=== PATIENT | female | born 1970 | race Hispanic/Latino ===

== ENCOUNTER 2017-07-11 12:40 | Outpatient (CLI) | payer OTHER ==
--- NOTE | 2017-07-12 13:19 | Mammography Report ---
BILATERAL DIGITAL SCREENING MAMMOGRAM with CAD: 07/11/17 12:40:00 CLINICAL: Baseline screening. FINDINGS: The breasts are heterogeneously dense, which may obscure small masses. Bilateral asymmetries and architectural distortion require additional imaging. No suspicious calcifications. IMPRESSION: Bilateral asymmetries and architectural distortion requiring further workup. BI-RADS CATEGORY: 0 -- Additional Imaging Evaluation Required RECOMMENDATION: Recall for bilateral true lateral and spot magnification views and bilateral breast ultrasound if needed. ACR BI-RADS MAMMOGRAPHIC CODES: 0 = Needs additional imaging evaluation; 1 = Negative; 2 = Benign; 3 = Probably benign; 4 = Suspicious; 5 = Malignant; 6 = Known biopsy-proven malignancy COMMENT: 1. Dense breast tissue, i.e., adenosis, fibrocystic changes, etc., may obscure an underlying neoplasm. 2. Approximately 10% of cancers are not detected with mammography. 3. A negative mammography report should not delay biopsy if a clinically suspicious mass is present. COMMENT: Patient follow-up letters are generated via our [employer] application.
== END 2017-07-11 12:41 | disposition home or self-care (01) ==
LOC: SPVWC 12:40
PROVIDERS: ATTEND Nurse Practitioner Gerontology
DX: Z12.31 Encounter for screening mammogram for malignant neoplasm of breast (principal); N64.89 Other specified disorders of breast
CPT/HCPCS: 77067

== ENCOUNTER 2017-08-24 10:34 | Outpatient (CLI) | payer MEDICAID ==
--- NOTE | 2017-08-24 11:12 | Mammography Report ---
BILATERAL DIGITAL DIAGNOSTIC MAMMOGRAM : 08/24/17 10:34:00 CLINICAL: Recalled for bilateral asymmetries. COMPARISON:07/11/17 screening FINDINGS: Bilateral additional mammographic views were performed and are negative.Satisfactory effacement of bilateral asymmetries and negative lateral views. IMPRESSION: Negative Mammogram. BI-RADS CATEGORY: 1 -- Negative RECOMMENDATION: Routine mammographic screening in one year. ACR BI-RADS MAMMOGRAPHIC CODES: 0 = Needs additional imaging evaluation; 1 = Negative; 2 = Benign; 3 = Probably benign; 4 = Suspicious; 5 = Malignant; 6 = Known biopsy-proven malignancy COMMENT: 1. Dense breast tissue, i.e., adenosis, fibrocystic changes, etc., may obscure an underlying neoplasm. 2. Approximately 10% of cancers are not detected with mammography. 3. A negative mammography report should not delay biopsy if a clinically suspicious mass is present. COMMENT: Patient follow-up letters are generated via our [employer] application.
== END 2017-08-24 10:35 | disposition home or self-care (01) ==
LOC: SPVWC 10:34
PROVIDERS: ATTEND Nurse Practitioner Gerontology
DX: N64.89 Other specified disorders of breast (principal); R92.2 Inconclusive mammogram
CPT/HCPCS: 77066

== ENCOUNTER 2018-10-03 13:11 | Outpatient (CLI) | payer MEDICAID ==
--- NOTE | 2018-10-03 15:35 | Mammography Report ---
DIGITAL SCREENING MAMMOGRAM WITH CAD, 10/03/2018 INDICATION: Routine screening mammography. TECHNIQUE: Digital bilateral 2D mammography was obtained in the craniocaudal and mediolateral obliq ue projections. This examination was interpreted with the benefit of Computer-Aided Detection analysi s. COMPARISON: 07/11/2017 FINDINGS: Breast Density: The breasts are heterogeneously dense, which may obscure small masses. There is no evidence of dominant mass, suspicious calcifications or architectural distortion in eithe r breast. IMPRESSION: BI-RADS Category 1: Negative. No mammographic evidence of malignancy. Recommend routine screening m ammography in one year. A "normal" or negative report should not discourage follow up or biopsy of a clinically significant f inding. A written summary of these findings will be mailed to the patient. The patient will be entered into a mammography reporting system which will generate a reminder letter for the patient's next appointmen t at the appropriate interval. The [employer] recommends yearly mammograms starting at age 40 and continuing as l el as a woman is in good health. Breast MRI is recommended for women with an approximate 20-25% or greater lifetime risk of breast cancer, including women with a strong family history of breast or ova tia cancer or who have been treated for Hodgkin's disease. Signer Name: Jarocho Gan MD Signed: 10/03/2018 3:31 PM Workstation Name: [id number]
--- NOTE | 2018-10-03 15:45 | Ultrasound Report ---
ULTRASOUND PELVIC COMPLETE ULTRASOUND TRANSVAGINAL HISTORY: Excessive menstrual bleeding, abnormal uterine bleeding. TECHNIQUE: Transabdominal and transvaginal ultrasound with color and spectral Doppler imaging. COMPARISON: None at this facility. FINDINGS: The uterus is anteverted. The uterus is mildly enlarged measuring 10.6 x 4.6 x 6.5 cm. No obvious juice rine fibroids are identified. The cervix is unremarkable. The endometrial stripe is abnormally thickened up to 2 cm on transvaginal imaging. There is suggestio n of 2 small endometrial polyps in the right side of the fundus and left side of the body of the uter us measuring up to 2 cm on ultrasound. I am not entirely convinced these represent endometrial polyps . This could represent a heterogeneous thickened endometrium as well. No endometrial fluid. The right ovary measures 1.6 x 1.3 x 1.0 cm. The left ovary measures 2.6 x 1.3 x 2.1 cm. No ovarian c yst or mass. Mild bilateral hydrosalpinx is also identified. No pelvic fluid collection. IMPRESSION: Thickened endometrium measuring up to 2 cm. This could represent endometrial hyperplasia. There is qu estion of 2 endometrial polyps as described above. Normal ovaries. Bilateral hydrosalpinx. Signer Name: Rene Connors Jr, MD Signed: 10/03/2018 3:40 PM Workstation Name: [id number]
== END 2018-10-03 13:12 | disposition home or self-care (01) ==
LOC: SPVWC 13:11
PROVIDERS: ATTEND Obstetrics & Gynecology
DX: Z12.31 Encounter for screening mammogram for malignant neoplasm of breast (principal); N70.11 Chronic salpingitis; I11.0 Hypertensive heart disease with heart failure; I50.21 Acute systolic (congestive) heart failure; J45.909 Unspecified asthma, uncomplicated; K21.9 Gastro-esophageal reflux disease without esophagitis
CPT/HCPCS: 76830; 76856; 77067

== ENCOUNTER 2019-05-17 12:55 | Outpatient (CLI) | payer MEDICAID ==
--- NOTE | 2019-05-17 14:12 | Cat Scan Report ---
CT ABDOMEN AND PELVIS WITHOUT CONTRAST HISTORY: K43.2Incisional hernia without obstruction or gangrene. COMPARISON: None. TECHNIQUE: Helical CT images of the abdomen and pelvis were obtained without administration of intrav enous contrast. Sagittal and coronal reformatted images were reviewed. All CT scans at this location are performed using CT dose reduction for ALARA by means of automated exposure control. FINDINGS: Abdomen/pelvis: A moderate sized supraumbilical hernia containing fat is identified. The hernia is a pproximately 4 cm superior to the umbilicus. The hernia neck measures 2.9 cm. The hernia sac measures 9.1 x 7.1 x 5.1 cm. No bowel loops are incorporated. No inflammation. The liver, biliary system, pancreas, spleen and adrenal glands are unremarkable. There are a few scattered bilateral renal stones with the largest measuring 9 mm at the superior pole of the left kidney. The aorta is normal caliber. There is mild sigmoid diverticulosis but no evidence for diverticulitis. No bowel obstruction or bowel wall thickening. Right hemicolectomy changes are suggested, correlate with history. Uterus, adnexa and bladder are unremarkable. Lungs/bones: Clear lung bases. The bony structures are intact with moderate degenerative changes at L5-S1. IMPRESSION: Supraumbilical hernia containing fat as outlined above. Bilateral nephrolithiasis. No hydronephrosis. Diverticulosis of the distal colon. Previous right hemicolectomy changes are suspected. Signer Name: Rene Connors Jr, MD Signed: 05/17/2019 2:08 PM Workstation Name: [id number]
== END 2019-05-17 12:56 | disposition home or self-care (01) ==
LOC: CT 12:55
PROVIDERS: ATTEND Surgery
DX: K42.9 Umbilical hernia without obstruction or gangrene (principal); N20.0 Calculus of kidney; K57.30 Diverticulosis of large intestine without perforation or abscess without bleeding
CPT/HCPCS: 74176

== ENCOUNTER 2019-07-18 10:02 | Day surgery (SDC) | payer MEDICAID ==
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
[2019-07-18 06:55] LABS: Bacteria,Urine 1+ /HPF (Negative); Bilirubin,Urine NEG (Negative); Blood,Urine NEG (Negative); Color,Urine Amber (Yellow); Mucus,Urine FEW /HPF; Protein,Urine <15 mg/dL mg/dL (Negative)
[2019-07-18 06:55] LABS: Basophils # (Auto) 0.1 K/mm3 (0.0-0.1); Basophils % (Auto) 0.7 % (0.0-1.8); Eosinophils # (Auto) 0.5 K/mm3 (0.0-0.4); Eosinophils % (Auto) 6.5 % (0.0-4.3); Hematocrit 37.7 % (30.3-42.9); Hemoglobin 13.3 gm/dl (10.1-14.3); Lymphocytes # (Auto) 2.2 K/mm3 (1.2-5.4); Lymphocytes % (Auto) 29.7 % (13.4-35.0); Mean Corpuscular HGB Conc 35 % (30-34); Mean Corpuscular Volume 88 fl (79-97); Monocytes # (Auto) 0.5 K/mm3 (0.0-0.8); Monocytes % (Auto) 7.4 % (0.0-7.3); Platelet Count 304 K/mm3 (140-440); Red Blood Count 4.27 M/mm3 (3.65-5.03); Red Cell Distribution Width 15.2 % (13.2-15.2)
--- NOTE | 2019-07-18 07:05 | Anesthesia Day of Surgery ---
Anesthesia Day of Surgery - Day of Surgery Patient Examined: Yes Patient H&P Reviewed: Yes Patient is NPO: Yes
--- NOTE | 2019-07-18 08:21 | Cat Scan Report ---
CT abdomen pelvis wo con INDICATION / CLINICAL INFORMATION: MAIN: LEFT FLANK PAIN X 1 WEEK PRE OP. TECHNIQUE: All CT scans at this location are performed using CT dose reduction for ALARA by means of automated e xposure control. COMPARISON: 05/17/2019 FINDINGS: No free fluid is seen in the abdomen. Nonobstructing left renal stones are again seen unchanged. Ther e are tiny stones present on the right. A ventral hernia containing fat is again seen. The liver, spl een, pancreas, adrenal glands and great vessels are normal. No enlarged mesenteric or retroperitoneal lymph nodes are identified. In the pelvis, no free fluid is seen. Changes of diverticulosis are present. No enlarged lymph nodes are identified. The bladder is minimally distended. There is been previous right hemicolectomy. No si gnificant skeletal abnormality is identified. IMPRESSION: 1. Bilateral nonobstructing renal stones larger on the left than the right 2. Ventral hernia containing fat 3. Diverticulosis with previous right hemicolectomy 4. No acute findings or interval change from 05/17/2019 Signer Name: Eitan Castro MD FACR Signed: 07/18/2019 8:16 AM Workstation Name: [id number]
--- NOTE | 2019-07-18 08:27 | Event Note ---
Date: 07/18/19 Pt chart reviewed and case discussed with preop RN. Pt presented this am and c/o left sided abdominal and flank pain for the last 1 wk. She has been self treating with Azo. She denies f/c, cp, sob, n/v, c/d. She denies dysuria, increased frequency of urination. She described the pain as intermittent, mild, spasm like. She has never had pain like this before. Abdominal exam - soft, NT, ND. Pt states she feels like she needs to urinate when left abdomen and suprapubic region is palpated. CBC, UA, and CT scan ordered: CBC shows normal WBC @7.3 UA likely contaminated sample as large number of epithelial cells CT Scan A/P - B/l nonobstructing renal stones, left greater than right. ventral hernia containing fat. diverticulosis without diverticulitis. previous right hemicolectomy. no acute findings or interval change from 05/17/19 At this point there is no evidence for infectious cause of abdominal pain. Can be related to nonobstructing kidney stone. Also patient is very anxious and this may also be a component. Will proceed with hernia repair. Results of labs and imaging discussed with patient. Pt is agreeable.
[~2019-07-18 10:02] MED LIST: ACETAMINOPHEN 500 MG TAB PO NR; BUPIVACAINE/PF (0.5%) 5 MG/1 ML 30 ML VIAL INFILTRATI ONE; CELECOXIB 200 MG CAP PO NR; GABAPENTIN 300 MG CAP PO NR; GLYCOPYRROLATE 0.4 MG/2 ML INJ ONE; LACTATED RINGERS 1,000 ML IV SCH; LIDOCAINE (1%) 10 MG/1 ML VIAL 20 ML MDV ONE; LIDOCAINE MPF (2%) 20 MG/1 ML VIAL 5 ML ONE; MAGNESIUM OXIDE 400 MG TAB PO NR; MIDAZOLAM 2 MG/2 ML INJ IV NR; NEOSTIGMINE 10MG/10 ML INJ MDV ONE; ONDANSETRON 4 MG/2 ML INJ IV PRN; ONDANSETRON 4 MG/2 ML INJ ONE; PHENYLEPHRINE/NS 1,000 MCG/10 ML SYRINGE (OR USE) IV ONE; ROCURONIUM 50 MG/5 ML INJ IV ONE; ROPIVACAINE/PF (0.5%) 5 MG/1 ML 30 ML VIAL ONE; SUCCINYLCHOLINE CHLORIDE 200 MG/10 ML INJ MDV ONE; ceFAZolin/Water 2 GM/20 ML 2 GM/20 ML SYRINGE IV SCH; fentaNYL 100 MCG/2 ML INJ IV NR; fentaNYL 100 MCG/2 ML INJ ONE; propofoL 200 MG/20 ML VIAL IV ONE
[2019-07-18] MEDS ORDERED: LIDOCAINE (1%) 10 MG/1 ML VIAL 20 ML MDV INFILTRATI ONE (10:22)
[2019-07-18] MEDS ORDERED: BUPIVACAINE/PF (0.5%) 5 MG/1 ML 30 ML VIAL INFILTRATI ONE (10:22)
[2019-07-18] MEDS ORDERED: WATER FOR IRRIG STERILE 1,500 ML BOTTLE IR ONE (10:22)
[2019-07-18] MEDS ORDERED: SUGAMMADEX SODIUM 200 MG/2 ML VIAL IV ONE (11:51)
[2019-07-18] MEDS ORDERED: KETAMINE/STERILE WATER 50 MG/ML SYRINGE ONE (11:51)
--- NOTE | 2019-07-18 12:01 | Short Stay Summary ---
Short Stay Documentation Date of service: 07/18/19 - History Principal diagnosis: inccarcerated incisional hernia H&P: obtained from office - Allergies and Medications Current Medications: Allergies No Known Allergies Allergy (Verified 07/05/19 10:27) Home Medications Medication Instructions Recorded Confirmed Last Taken Type No Known Home Medications [No 07/05/19 07/05/19 Unknown History Reported Home Medications] Active Medications Acetaminophen (Tylenol) 1,000 mg PO ONCE NR Stop: 07/18/19 23:00 Last Admin: 07/18/19 08:19 Dose: 1,000 mg Documented by: Celecoxib (Celebrex) 400 mg PO PREOP NR Stop: 07/18/19 23:59 Last Admin: 07/18/19 08:17 Dose: 400 mg Documented by: Fentanyl (Sublimaze) 100 mcg IV ONCE NR Stop: 07/18/19 23:00 Gabapentin (Gabapentin) 300 mg PO PREOP NR Stop: 07/18/19 23:00 Last Admin: 07/18/19 08:16 Dose: 300 mg Documented by: Hydromorphone HCl (Dilaudid) 0.5 mg IV Q10MIN PRN PRN Reason: Pain , Severe (7-10) Stop: 07/18/19 23:00 Cefazolin Sodium (Ancef/Sterile Water 2 Gm/20 Ml) 2 gm in 20 mls @ 120 mls/hr IV PREOP PRIYA Stop: 07/18/19 23:59 Lactated Ringer's (Lactated Ringers) 1,000 mls @ 100 mls/hr IV DIRECT PRIYA Last Admin: 07/18/19 08:16 Dose: 100 mls/hr Documented by: Magnesium Oxide (Mag-Ox) 400 mg PO ONCE NR Stop: 07/18/19 23:00 Last Admin: 07/18/19 08:16 Dose: 400 mg Documented by: Midazolam HCl (Versed) 2 mg IV PREOP NR Stop: 07/18/19 23:59 Ondansetron HCl (Zofran) 4 mg IV ONCE PRN PRN Reason: Nausea And Vomiting Stop: 07/18/19 23:00 - Brief post op/procedure progress note Date of procedure: 07/18/19 Pre-op diagnosis: incarcerated incisional hernia Post-op diagnosis: same Procedure: Robotic assisted lysis of adhesions, repair of incisional hernia with mesh Anesthesia: GETA, other (MIS BLOCK) Findings: 1. Large amount of incarcerated omentum in 2.5 cm hernia defect 2. Adhesions from omentum to anterior abdominal wall 3. Total hernia defect measuring 3cm x 7cm - repaired with ventralight ST 10.2cm x 15.2cm mesh Surgeon: ETHEL RICHARD Tug Boat Engineer: CRISTOBAL HARRIS Estimated blood loss: minimal Pathology: none Condition: stable - Hospital course Hospital course: PT observed in PACU and discharged to home in stable condition when criteria met - Disposition Condition at discharge: Good Disposition: DC-01 TO HOME OR SELFCARE Short Stay Discharge Plan Activity: other (no heavy lifting) Diet: regular Wound: per your surgeon's advice Additional Instructions: SEE PRINTED DISCHARGE INSTRUCTIONS Follow up with: PRIMARY CARE, [Primary Care Provider] - 7 Days ETHEL RICHARD DO [Staff Physician] - 14 Days Prescriptions: Ibuprofen [Motrin 800 MG tab] 800 mg PO Q8HR #30 tablet oxyCODONE /ACETAMINOPHEN [Percocet 5/325] 1 tab PO Q4HR PRN #30 tab PRN Reason: Pain , Severe (7-10) Promethazine [Phenergan] 25 mg PO Q6HR PRN #30 tab PRN Reason: Nausea
[2019-07-18] MEDS: HYDROmorphone 1 MG/1 ML INJ IV PRN ×2 (12:38→12:58)
[2019-07-18 13:25] VITALS: BP 102/58
--- NOTE | 2019-07-18 13:45 | Post Anesthesia Evaluation ---
- Post Anesthesia Evaluation Patient Participated: Yes Airway Patent: Yes Stable Respiratory Function: Yes Nausea/Vomiting: No Temp > 96.8F: Yes Pain Manageable: Yes Adequeate Hydration: Yes Anesthesia Complications: No Block Receding Appropriately: Yes Patient on Ventilator: No
--- NOTE | 2019-07-19 13:26 | Operative Report ---
Operative Report Operative Report: Date of procedure: 07/18/19 Pre-op diagnosis: incarcerated incisional hernia Post-op diagnosis: same Procedure: Robotic assisted lysis of adhesions, repair of incisional hernia with mesh Anesthesia: GETA, other (MIS BLOCK) Findings: 1. Large amount of incarcerated omentum in 2.5 cm hernia defect 2. Adhesions from omentum to anterior abdominal wall 3. Total hernia defect measuring 3cm x 7cm - repaired with ventralight ST 10.2cm x 15.2cm mesh Surgeon: ETHEL RICHARD Art Model: CRISTOBAL HARRIS Estimated blood loss: minimal Pathology: none Condition: stable Disposition: To PACU, discharged home in stable condition when criteria met HPI and indication: Patient is a 48-year-old female who was seen in the surgery clinic for evaluation of an incisional hernia. All imaging including a CT scan of the abdomen and pelvis was reviewed. It was recommended that the hernia be repaired. All risks, benefits, alternatives to surgery were discussed with the patient and questions answered. Consent was obtained for robotic assisted laparoscopic incisional hernia repair with mesh, possible open. Procedure in detail: Patient identified in the preoperative area, taken back to the operating room, placed on operating room table in supine position. After anesthesia was induced bilateral arms were tucked and all bony prominences padded appropriately. A Paul catheter was sterilely placed by the circulating nurse. The abdomen was then prepped and draped in usual sterile fashion a timeout performed. Preoperatively, the patient had a MIS block. A shelby incision was made in the left upper quadrant through which a Veress needle was inserted. The Veress needle positioning was confirmed using the saline drop test and the abdomen insufflated to 15 mmHg. A 5 mm Optiview trocar was then placed in the right upper quadrant under direct visualization. The abdomen was inspected and there was no underlying injury to any of the abdominal structures. The Veress needle was removed. There were adhesions seen to most of the midline and left abdomen. This was mainly omentum to the anterior abdominal wall. A right lower quadrant 8 mm robotic trocar was placed under direct visualization as well as a 12 mm balloon trocar in the right lateral mid abdomen under direct visualization. The 5 mm right upper quadrant trocar was replaced with an 8 mm robotic trocar under direct visualization. The robot was then docked. A monopolar scissor was placed in arm #1 and a fenestrated bipolar in arm #2. The surgeon was transferred to the console. First, extensive adhesiolysis was performed and omental adhesions to the anterior abdominal wall were taken down using a monopolar scissors. Once all of the adhesions were taken down, the hernia and its contents were visualized. Omentum which was chronically incarcerated in the hernia was carefully reduced. There was a large amount of omentum incarcerated in the hernia with dense adhesions. Adhesio lysis and reduction of the hernia took approximately 1 hour. The total hernia defect measured 3 cm x 7 cm. A ventral light ST 10.2 cm x 15.2 cm mesh was chosen to repair the hernia defect. A tagging suture was placed at the center of the mesh using a 2-0 Vicryl stitch and the mesh inserted into the abdomen via the 12 mm port. Suture material was also placed in the abdomen by the school office assistant surgeon. The pressure in the abdomen was decreased to 8 mmHg. The hernia defect was primarily closed with an 0V lock running suture. A Veress needle was then inserted by the school office assistant surgeon through the middle of the defect and the tagging suture grasped in order to position the mesh at the center of the defect. The mesh was oriented and the coated side was ensured to be towards the bowel. The mesh was circumferentially sutured using a 2-0 VLock continuous suture x2. The mesh was seen to lay flat and had adequate coverage of the hernia defect. The robot was then undocked and the surgeon scrubbed back in. The remainder of the case was performed laparoscopically. All needle and suture material was removed from the abdomen. The omentum which was reduced as well as involved in the adhesions was examined and there was no bleeding seen. Hemostasis was carefully ensured. The 12 mm port fascia as well as the right upper quadrant port fascia was closed with an interrupted 0 Vicryl suture using the Jaylen Caba device. The right upper quadrant 8 mm trocar site was closed as it was moderately stretched by the port. The abdomen was slowly desufflated and the remaining port was removed. The skin incisions were closed with 4 Monocryl subc uticular stitches and skin glue. A 4 x 4 gauze rolled up was placed on the abdomen at the site of the hernia defect for compression and a abdominal binder applied. At the end of the case, all sponge, instrument, sharp counts were correct 2. The patient was awoken from anesthesia and extubated, paul removed, and she was taken to PACU in stable condition.
== END 2019-07-18 14:44 | disposition home or self-care (01) ==
LOC: OR 10:02
PROVIDERS: ATTEND Surgery
DX: K43.0 Incisional hernia with obstruction, without gangrene (principal); Z11.59 Encounter for screening for other viral diseases; G43.909 Migraine, unspecified, not intractable, without status migrainosus; E78.00 Pure hypercholesterolemia, unspecified; K21.9 Gastro-esophageal reflux disease without esophagitis; E11.9 Type 2 diabetes mellitus without complications; F32.9 Major depressive disorder, single episode, unspecified; F41.9 Anxiety disorder, unspecified; Z87.440 Personal history of urinary (tract) infections; Z72.89 Other problems related to lifestyle; Z87.891 Personal history of nicotine dependence; Z79.899 Other long term (current) drug therapy; Z98.890 Other specified postprocedural states; Z86.2 Personal history of diseases of the blood and blood-forming organs and certain disorders involving the immune mechanism
CPT/HCPCS: 36415; 49655; 74176; 81001; 81025; 82962; 85025; 87086; C1781; J0330; J0690; J1170; J2250; J2370; J2405; J2704; J2710; J2795; J3010; J7120; S2900; U0003; 64450

== ENCOUNTER 2019-10-10 15:39 | Outpatient (CLI) | payer MEDICAID ==
--- NOTE | 2019-10-10 17:58 | Cat Scan Report ---
CT ABDOMEN AND PELVIS WITHOUT CONTRAST INDICATION / CLINICAL INFORMATION: INCISIONAL HERNIA W/O REPAIR OBSTRUCTION OR GANGRENE. TECHNIQUE: Axial CT images were obtained through the abdomen and pelvis without IV contrast. All CT scans at [facility] location are performed using CT dose reduction for ALARA by means of automated exposure control. COMPARISON: 07/18/2019 CT abdomen pelvis FINDINGS: LOWER CHEST: No significant abnormality. HEPATOBILIARY: No significant abnormality. PANCREAS: No significant abnormality. SPLEEN: No significant abnormality. ADRENALS: No significant abnormality. GENITOURINARY: 8 mm stone at the left UPJ with mild surrounding inflammatory change and mild left hyd ronephrosis. Stones previously seen nonobstructing in the collecting system on 07/18/2019. Punctate ca lcifications (1 left, 1 right) measuring up to 5 mm likely representing nephroliths. GASTROINTESTINAL/MESENTERY: Postoperative change from ileocolic resection/anastomosis. Inferior to e anastomosis there is scattered fat stranding or fat necrosis which is increased when compared to , and anterior to this is a fat and fluid-containing anterior abdominal wall hernia measuring 2.7 x 4.1 cm. This was purely fat-containing hernia on 07/18/2019. No bowel obstruction or inflammatio n. No free air or free fluid. Diverticulosis coli without evidence of diverticulitis. RETROPERITONEUM: No significant adenopathy. REPRODUCTIVE ORGANS: No significant abnormality. VASCULAR: No significant abnormality. SKELETAL SYSTEM: Mild degenerative change without acute fracture or aggressive osseous lesion. ADDITIONAL FINDINGS: No significant abnormality. IMPRESSION: 1. 8 mm stone at the left UPJ with mild surrounding inflammatory change and mild left hydronephrosis. 2. Postoperative change from ileocolic resection with increasing fat stranding/necrosis extending to the anterior abdominal wall, just above the level of the umbilicus, where there is a small fat and fl uid containing anterior abdominal wall hernia. Fat stranding/necrosis appears increased when compared to the prior examination. Signer Name: Artis Agee MD Signed: 10/10/2019 5:53 PM Workstation Name: [id number]
== END 2019-10-10 15:40 | disposition home or self-care (01) ==
LOC: CT 15:39
PROVIDERS: ATTEND Surgery
DX: N13.39 Other hydronephrosis (principal); N20.0 Calculus of kidney; K43.2 Incisional hernia without obstruction or gangrene
CPT/HCPCS: 74176

== ENCOUNTER 2019-11-20 09:40 | Outpatient (CLI) | payer MEDICAID ==
--- NOTE | 2019-11-20 11:04 | Mammography Report ---
BILATERAL DIGITAL SCREENING MAMMOGRAM WITH CAD HISTORY: SCREENING MAMMOGRAM TECHNIQUE: Routine digital mammographic imaging performed. This examination was interpreted with mary ndiaye benefit of Computer-aided Detection analysis. COMPARISON: 10/03/2018, 08/24/2017, 07/11/2017. FINDINGS: Breast Density: scattered fibroglandular appearance of the breast tissue. Digital CC and MLO views demonstrate no mammographic evidence of malignancy. IMPRESSION: No mammographic evidence of malignancy. If the clinical examination remains stable, recommend bilate ral mammogram in approximately one year. BIRADS 1: Negative. FURTHER INFORMATION: According to the [employer], yearly mammograms are recommend ed starting at age 40 and continuing as long as a woman is in good health. Clinical Breast Exams shou ld be part of a periodic health exam-about every 3 years for women in their 20s and 30s and every yea r for women 40 and over. Breast self exam is an option for women starting in their 20s. Any breast ch diamante noted on a breast self exam should be reported promptly to the patient's healthcare provider. Br east MRI is recommended for women with an approximately 20-25% or greater lifetime risk of breast can cer, including women with a strong family history of breast or ovarian cancer and women who have been treated for Hodgkin's disease. A negative Mammography report should not discourage follow up or biopsy of a clinically significant f inding and/or abnormality. Dense breast tissue may obscure small neoplasms. The patient will be entered into a reminder system with a target due date for the next screening mamm ogram. Signer Name: Frandy Herbert MD Signed: 11/20/2019 10:59 AM Workstation Name: [id number]
== END 2019-11-20 09:41 | disposition home or self-care (01) ==
LOC: SPVWC 09:40
PROVIDERS: ATTEND Obstetrics & Gynecology
DX: Z12.31 Encounter for screening mammogram for malignant neoplasm of breast (principal)
CPT/HCPCS: 77067